=== PATIENT | male | born 2000 | race Caucasian/White ===

== ENCOUNTER 2021-02-21 09:07 | Emergency (ER) | payer OTHER ==
[~2021-02-21] VITALS: Ht 167.6 cm; Wt 77.3 kg
[2021-02-21] MEDS ORDERED: DEXAMETHASONE SOD PHOS 4 MG/ML 5 ML VIAL IM ONE (09:30)
[2021-02-21 09:52] LABS: COVID AG,FIA SOURCE NASOPHARYNGEAL
[2021-02-21 10:15] VITALS: BP 134/74
== END 2021-02-21 10:26 | disposition home or self-care (01) ==
LOC: EMS 09:07
DX: J02.0 Streptococcal pharyngitis (principal); Z20.822 Contact with and (suspected) exposure to COVID-19
CPT/HCPCS: 87426; 87430; 96372; 99283; J1100

== ENCOUNTER 2021-05-28 16:04 | Emergency (ER) | payer OTHER ==
[~2021-05-28] VITALS: Ht 167.6 cm; Wt 75.0 kg
[2021-05-28 16:07] VITALS: BP 125/69
[2021-05-28 17:19] LABS: COVID AG,FIA SOURCE NASOPHARYNGEAL
[2021-05-28 17:55] LABS: INFLUENZA TYPE A NEGATIVE FOR TYPE A (NEGATIVE); INFLUENZA TYPE B NEGATIVE FOR TYPE B (NEGATIVE)
== END 2021-05-28 18:55 | disposition home or self-care (01) ==
LOC: EMS 16:31
DX: B34.9 Viral infection, unspecified (principal); R19.7 Diarrhea, unspecified; F14.90 Cocaine use, unspecified, uncomplicated; F17.210 Nicotine dependence, cigarettes, uncomplicated; Z88.0 Allergy status to penicillin; Z20.822 Contact with and (suspected) exposure to COVID-19
CPT/HCPCS: 87804; 99283